=== PATIENT | male | born 1950 | race Hispanic/Latino ===

== ENCOUNTER 2021-01-12 15:29 | Emergency (ER) | payer MEDICARE ==
[~2021-01-12] VITALS: Ht 172.7 cm; Wt 68.7 kg
[2021-01-12] MEDS ORDERED: METFORMIN HCL500 M2 PO (16:39)
[2021-01-12] MEDS ORDERED: ATORVASTATIN CA20 MG PO (16:39)
[2021-01-12] MEDS ORDERED: GLIMEPIRIDE2 MG PO (16:39)
[2021-01-12] MEDS ORDERED: LOSARTAN POTASS25 MG PO (16:39)
[2021-01-12] MEDS ORDERED: KETOROLAC TROMETHAMINE 60 MG/2 ML VIAL IM ONE (17:00)
== END 2021-01-12 17:13 | disposition home or self-care (01) ==
LOC: EDSEX 15:49 → FSED 17:10
DX: M54.32 Sciatica, left side (principal); I10 Essential (primary) hypertension; E11.9 Type 2 diabetes mellitus without complications; E78.5 Hyperlipidemia, unspecified
CPT/HCPCS: 99282; J1885